=== PATIENT | female | born 1985 | race Caucasian/White ===

== ENCOUNTER → 2022-03-08 | Outpatient (CLI) | payer OTHER ==
[~2022-03-08] MED LIST: ALBU90OI INH; AZIT250 PO; HYDACE5 PO; PRED20 PO
== END ==
LOC: LAB 18:59 → LAB SHORT 18:59
DX: S90.112A Contusion of left great toe without damage to nail, initial encounter (principal)
CPT/HCPCS: 87070; 87075; 87205

== ENCOUNTER 2022-06-18 02:30 | Emergency (ER) | payer OTHER ==
[~2022-06-18] VITALS: Ht 162.6 cm; Wt 126.1 kg
[~2022-06-18 02:30] MED LIST changes: +ASPIR 8181 M1 PO; +EUTHYROX50 MCG PO; +FERRIC X-150150 M1 PO; +IBUP800 PO; +METF500 PO; +NOVOLIN N100 UNIT/2 IM; +NOVOLIN N100 UNIT/2 SC; +NOVOLIN R100 UNIT/2 SC; +PRENATAL TABLE1 EAC2 PO; +Percocet 5-3251 EACH PO
== END 2022-06-18 04:00 | disposition home or self-care (01) ==
LOC: ER 02:30
DX: Z48.01 Encounter for change or removal of surgical wound dressing (principal); Z98.890 Other specified postprocedural states; Z79.82 Long term (current) use of aspirin; Z79.4 Long term (current) use of insulin
CPT/HCPCS: 99282

== ENCOUNTER 2023-03-12 10:29 | Emergency (ER) | payer OTHER ==
[~2023-03-12] VITALS: Ht 162.6 cm; Wt 134.3 kg
[2023-03-12 11:16] LABS: BASOPHILS ABSOLUTE AUTO 0.03 K/mm3 (0.00-0.23); BASOPHILS PERCENT AUTO 0 % (0-2); EOSINOPHILS ABSOLUTE AUTO 0.02 K/mm3 (0.00-0.68); EOSINOPHILS PERCENT AUTO 0 % (0-6); Hematocrit 45.7 % (33.0-51.0); Hemoglobin 15.7 g/dL (11.5-16.0); IMMATURE GRAN ABSOLUTE AUTO 0.02 K/mm3 (0.00-0.10); IMMATURE GRAN PERCENT AUTO 0 % (0-1); LYMPHOCYTES ABSOLUTE AUTO 0.74 K/mm3 (0.84-5.20); LYMPHOCYTES PERCENT AUTO 9 % (21-46); MONOCYTES ABSOLUTE AUTO 0.25 K/mm3 (0.16-1.47); MONOCYTES PERCENT AUTO 3 % (4-13); Mean Corpuscular HGB 29.4 pg (26.0-34.0); Mean Corpuscular HGB Conc 34.4 g/dL (31.5-36.5); Mean Corpuscular Volume 86 fL (80-100); NEUTROPHILS ABSOLUTE AUTO 7.04 K/mm3 (1.96-9.15); NEUTROPHILS PERCENT AUTO 87 % (41-73); Platelet Count 271 K/mm3 (150-400); RDW Coefficient Variation 12.2 % (11.7-14.2); RDW Standard Deviation 38.3 fL (35.1-46.3); Red Blood Cell Count 5.34 M/mm3 (3.80-5.20)
[2023-03-12 11:39] LABS: Influenza A, PCR NEGATIVE (NEGATIVE); Influenza B, PCR NEGATIVE (NEGATIVE); Resp Syncytial Virus, PCR NEGATIVE (NEGATIVE); SARS-Cov-2 (COVID-19) PCR, MMC NEGATIVE (NEGATIVE)
[2023-03-12 11:48] LABS: Albumin, Blood 3.4 g/dL (3.4-5.0); Albumin/Globulin Ratio 0.9 (0.8-1.8); Bilirubin, Total 0.7 mg/dL (0.1-1.0); Bun/Creatinine Ratio 14.1 (12.0-20.0); Calcium, Blood 8.5 mg/dL (8.5-10.1); Creatinine, Blood 0.64 mg/dL (0.40-1.00); Globulin, Blood 3.7 g/dL (2.2-4.0); Potassium, Blood 3.6 mmol/L (3.5-5.5); Total Protein, Blood 7.1 g/dL (6.4-8.2)
[2023-03-12] MEDS ORDERED: METO10 PO (13:45)
[2023-03-12] MEDS ORDERED: ONDA4ODT MM (13:45)
[2023-03-12 14:30] VITALS: BP 123/73
== END 2023-03-12 14:37 | disposition home or self-care (01) ==
LOC: ER 10:29
PROVIDERS: Student in an Organized Health Care Education/Training Program
DX: A08.4 Viral intestinal infection, unspecified (principal); E86.0 Dehydration; R00.0 Tachycardia, unspecified; Z20.822 Contact with and (suspected) exposure to COVID-19; I10 Essential (primary) hypertension; E11.9 Type 2 diabetes mellitus without complications; Z79.4 Long term (current) use of insulin; Z88.8 Allergy status to other drugs, medicaments and biological substances; Z79.82 Long term (current) use of aspirin; Z79.890 Hormone replacement therapy; Z79.899 Other long term (current) drug therapy; Z79.1 Long term (current) use of non-steroidal anti-inflammatories (NSAID)
CPT/HCPCS: 0241U; 80053; 81025; 83690; 85025; 93005; 93010; 96361; 96374; 99284-25; A9270; J2405; J7030; J7120

== ENCOUNTER → 2023-05-04 | Outpatient (CLI) | payer OTHER ==
[~2023-05-04] MED LIST changes: +METO10 PO; +ONDA4ODT MM
== END ==
LOC: LAB 16:10 → LAB SHORT 16:10
DX: M79.605 Pain in left leg (principal)
CPT/HCPCS: 85379

== ENCOUNTER 2023-12-18 23:48 | Emergency (ER) | payer OTHER ==
[~2023-12-18] VITALS: Ht 162.6 cm; Wt 133.8 kg
[2023-12-19 00:44] LABS: BASOPHILS ABSOLUTE AUTO 0.03 K/mm3 (0.00-0.23); BASOPHILS PERCENT AUTO 1 % (0-2); EOSINOPHILS ABSOLUTE AUTO 0.14 K/mm3 (0.00-0.68); EOSINOPHILS PERCENT AUTO 2 % (0-6); Hematocrit 42.6 % (33.0-51.0); Hemoglobin 14.3 g/dL (11.5-16.0); IMMATURE GRAN ABSOLUTE AUTO 0.06 K/mm3 (0.00-0.10); IMMATURE GRAN PERCENT AUTO 1 % (0-1); LYMPHOCYTES ABSOLUTE AUTO 2.72 K/mm3 (0.84-5.20); LYMPHOCYTES PERCENT AUTO 44 % (21-46); MONOCYTES ABSOLUTE AUTO 0.36 K/mm3 (0.16-1.47); MONOCYTES PERCENT AUTO 6 % (4-13); Mean Corpuscular HGB 27.8 pg (26.0-34.0); Mean Corpuscular HGB Conc 33.6 g/dL (31.5-36.5); Mean Corpuscular Volume 83 fL (80-100); NEUTROPHILS ABSOLUTE AUTO 2.84 K/mm3 (1.96-9.15); NEUTROPHILS PERCENT AUTO 46 % (41-73); NRBC ABSOLUTE 0.02 K/mm3 (0.00-0.02); NRBC Auto 0.3 /100 WBC (0.0-0.2); RDW Standard Deviation 38.8 fL (35.1-46.3); Red Blood Cell Count 5.14 M/mm3 (3.80-5.20); White Blood Cell Count 6.15 K/mm3 (4.00-11.30)
[2023-12-19 00:46] LABS: Albumin, Blood 3.4 g/dL (3.4-5.0); Albumin/Globulin Ratio 0.8 (0.8-1.8); Bilirubin, Total 0.3 mg/dL (0.1-1.0); Bun/Creatinine Ratio 23.4 (12.0-20.0); Creatinine, Blood 0.51 mg/dL (0.40-1.00); Mean Platelet Volume 10.8 fL (9.1-12.4); Platelet Count 185 K/mm3 (150-400); Potassium, Blood 3.9 mmol/L (3.5-5.5); Total Protein, Blood 7.4 g/dL (6.4-8.2)
[2023-12-19] MEDS ORDERED: Acetaminophen 325 MG TABLET PO ONE (01:25)
[2023-12-19 03:30] VITALS: BP 138/89
== END 2023-12-19 03:33 | disposition home or self-care (01) ==
LOC: ER 23:48
PROVIDERS: Student in an Organized Health Care Education/Training Program
DX: R07.9 Chest pain, unspecified (principal); E11.65 Type 2 diabetes mellitus with hyperglycemia; I10 Essential (primary) hypertension; E03.9 Hypothyroidism, unspecified; F41.9 Anxiety disorder, unspecified; Z79.84 Long term (current) use of oral hypoglycemic drugs; Z79.899 Other long term (current) drug therapy; Z88.8 Allergy status to other drugs, medicaments and biological substances
CPT/HCPCS: 71046; 80053; 84484; 85025; 93005; 93010; 99285-25; A9270